=== PATIENT | female | born 1980 | race Caucasian/White ===

== ENCOUNTER 2017-12-27 10:51 | Outpatient (CLI) | payer OTHER ==
[~2017-12-27 10:51] MED LIST: BCP; ENDOCET 5-3251 EACH PO; IBUPROFEN800 MG PO
[2017-12-27 11:27] VITALS: BP 115/62
== END 2017-12-27 12:20 | disposition home or self-care (01) ==
LOC: LDRP-OP 10:51 → 2WEST 10:52 → LDRP-OP 01-24 10:22
DX: O26.893 Other specified pregnancy related conditions, third trimester (principal); R03.0 Elevated blood-pressure reading, without diagnosis of hypertension; O09.523 Supervision of elderly multigravida, third trimester; Z3A.40 40 weeks gestation of pregnancy
CPT/HCPCS: 59025; G0378

== ENCOUNTER 2018-01-01 17:28 | Outpatient (CLI) | payer OTHER ==
[~2018-01-01] VITALS: Ht 167.6 cm; Wt 87.0 kg
[2018-01-01] MEDS ORDERED: PENTASA250 MG PO (17:52)
[2018-01-01] MEDS ORDERED: PENTASA500 MG PO (17:52)
[2018-01-01] MEDS ORDERED: ASPIR 8181 M1 PO (17:53)
[2018-01-01 17:57] VITALS: BP 137/84
[2018-01-01 19:19] LABS: BASOPHIL (%) 0.2 % (0-1); EOSINOPHIL (%) 1.2 % (0-5); EOSINOPHIL COUNT 0.1 K/uL (0-0.3); HEMATOCRIT 32.4 % (36.0-46.0); HEMOGLOBIN 11.4 G/DL (11.9-15.5); IMMATURE GRANULOCYTE (%) 0.8 % (0.0-0.7); LYMPHOCYTE (%) 10.7 % (15-42); LYMPHOCYTE COUNT 1.3 K/uL (1.0-2.8); MCH 29.6 PG (29.0-34.0); MCHC 35.2 G/DL (30.0-36.0); MCV 84.2 FL (83-99); MONOCYTE COUNT 0.7 K/uL (0-0.8); NEUTROPHIL (%) 81.1 % (45-76); NEUTROPHIL COUNT 9.8 K/uL (1.8-6.4); PLATELET COUNT 212 K/uL (156-360); RBC DIS.WIDTH-CV 12.5 % (11.8-14.6); RBC DIS.WIDTH-SD 37.6 % (39-53); RED BLOOD COUNT 3.85 M/uL (3.80-5.20); WHITE BLOOD COUNT 12.1 K/uL (4.1-10.2)
[2018-01-01 20:08] LABS: AMPHETAMINE NEGATIVE (500 ng/mL); BARBITURATES NEGATIVE (200 ng/mL); BENZODIAZEPINES NEGATIVE (150 ng/mL); BUPRENORPHINE NEGATIVE (10 ng/mL); COCAINE NEGATIVE (150 ng/mL); METHADONE NEGATIVE (200 ng/mL); METHAMPHETAMINE NEGATIVE (500 ng/mL); OPIATES (MORPHINE) NEGATIVE (100 ng/mL); OXYCODONE NEGATIVE (100 ng/mL); PHENCYCLIDINE NEGATIVE (25 ng/mL); PROPOXYPHENE NEGATIVE (300 ng/mL); THC CANNABINOIDS NEGATIVE (50 ng/mL); TRICYCLIC ANTIDEPRESSANTS NEGATIVE (300 ng/mL)
[2018-01-02] MEDS ORDERED: IBUPROFEN800 MG PO (23:02)
[2018-01-02] MEDS ORDERED: PENTASA500 MG PO (23:58)
== END 2018-01-01 19:55 | disposition home or self-care (01) ==
LOC: LDRP-OP 17:28 → 2WEST 17:29 → LDRP-OP 01-24 12:24
PROVIDERS: Nurse Practitioner
DX: O41.03X0 Oligohydramnios, third trimester, not applicable or unspecified (principal); Z3A.41 41 weeks gestation of pregnancy; Z87.891 Personal history of nicotine dependence
CPT/HCPCS: 59025; 85025; G0378

== ENCOUNTER 2018-01-02 12:00 | Inpatient (IN) | payer OTHER ==
[~2018-01-02] VITALS: Ht 167.6 cm; Wt 87.5 kg
[2018-01-02] VITALS (13 sets, daily range): BP systolic 111–143; BP diastolic 56–86
[~2018-01-02 12:00] MED LIST changes: +ASPIR 8181 M1 PO; +PENTASA250 MG PO; +PENTASA500 MG PO
[2018-01-02 15:46] LABS: AMPHETAMINE NEGATIVE (500 ng/mL); BARBITURATES NEGATIVE (200 ng/mL); BENZODIAZEPINES NEGATIVE (150 ng/mL); BUPRENORPHINE NEGATIVE (10 ng/mL); COCAINE NEGATIVE (150 ng/mL); METHADONE NEGATIVE (200 ng/mL); METHAMPHETAMINE NEGATIVE (500 ng/mL); OPIATES (MORPHINE) NEGATIVE (100 ng/mL); OXYCODONE NEGATIVE (100 ng/mL); PHENCYCLIDINE NEGATIVE (25 ng/mL); PROPOXYPHENE NEGATIVE (300 ng/mL); THC CANNABINOIDS NEGATIVE (50 ng/mL); TRICYCLIC ANTIDEPRESSANTS NEGATIVE (300 ng/mL)
[2018-01-02] MEDS ORDERED: IBUPROFEN800 MG PO (23:02)
[2018-01-02] MEDS ORDERED: PENTASA500 MG PO (23:58)
[2018-01-03] MEDS ORDERED: IRON325 M1 PO
[2018-01-03 00:33] VITALS: BP 127/62
[2018-01-03 01:18] VITALS: BP 129/58
[2018-01-03 08:17] VITALS: BP 142/76
[2018-01-03 19:44] VITALS: BP 140/68
[2018-01-03 23:00] VITALS: BP 100/55
[2018-01-04 03:15] VITALS: BP 116/66
[2018-01-04 07:20] VITALS: BP 115/67
== END 2018-01-04 11:00 | disposition home or self-care (01) | DRG 775 ==
LOC: LDRP-OP 12:00 → 2WEST 12:01 → LDRP-OP 20:11 → 2WEST 22:27
PROVIDERS: Midwife
DX: O48.0 Post-term pregnancy (principal); Z3A.41 41 weeks gestation of pregnancy; Z37.0 Single live birth; O70.9 Perineal laceration during delivery, unspecified; O09.523 Supervision of elderly multigravida, third trimester